=== PATIENT | female | born 1945 | race Caucasian/White ===

== ENCOUNTER 2019-04-17 20:59 | Emergency (ER) | payer MEDICAID ==
[~2019-04-17] VITALS: Ht 157.5 cm; Wt 72.0 kg
[~2019-04-17 20:59] MED LIST: ALPR-393 PO; LACT10SO7 PO; LISI-186 PO; METF-815 PO; ONDA4TAB11 PO; RANI-655 PO; TRAM50TA3 PO
[2019-04-18 01:26] LABS: CHLORIDE 105 mEq/L (98-107)
[2019-04-18 01:33] LABS: BASOPHILS % 0.6 % (0.0-2.0); EOSINOPHILS % 0.9 % (0.0-5.0); HEMATOCRIT. 38.3 % (36.0-48.0); HEMOGLOBIN. 13.2 g/dL (12.0-16.0); LYMPHOCYTES % 20.7 % (20.0-50.0); MEAN CORPUSCULAR HEMOGLOBIN 31.2 pg (28.0-32.0); MEAN CORPUSCULAR VOLUME 90.5 fL (81.0-99.0); MEAN PLATELET VOLUME 7.9 fl (7.4-10.4); MONOCYTES % 5.3 % (2.0-8.0); NEUTROPHILS % 72.5 % (40.0-76.0); PLATELET 283 x1000/uL (130-400); RED BLOOD CELL COUNT 4.23 mill/uL (4.2-5.4); RED CELL DISTRIBUTION WIDTH 13.2 % (11.6-14.6)
[2019-04-18] MEDS ORDERED: TRAMADOL 50MG TABLET PO ONE (02:30)
[2019-04-18] MEDS ORDERED: GABAPENTIN 300MG CAPSULE PO ONE (02:30)
[2019-04-18 03:06] VITALS: BP 129/51
== END 2019-04-18 04:12 | disposition home or self-care (01) ==
LOC: ER 20:59
DX: E11.42 Type 2 diabetes mellitus with diabetic polyneuropathy (principal); K31.9 Disease of stomach and duodenum, unspecified; E11.43 Type 2 diabetes mellitus with diabetic autonomic (poly)neuropathy; I10 Essential (primary) hypertension; K31.84 Gastroparesis; Z79.899 Other long term (current) drug therapy
CPT/HCPCS: 36415; 71045; 80053; 84484; 85025; 93005; 99285

== ENCOUNTER 2019-12-09 05:30 | Inpatient (IN) | payer MEDICAID, OTHER ==
[~2019-12-09] VITALS: Ht 152.4 cm; Wt 80.3 kg
[2019-12-09 06:38] LABS: BASOPHILS % 0.5 % (0.0-2.0); EOSINOPHILS % 0.6 % (0.0-5.0); HEMATOCRIT. 34.1 % (36.0-48.0); HEMOGLOBIN. 11.9 g/dL (12.0-16.0); LYMPHOCYTES % 18.5 % (20.0-50.0); MEAN CORPUSCULAR HEMOGLOBIN 31.7 pg (28.0-32.0); MEAN CORPUSCULAR VOLUME 91.2 fL (81.0-99.0); MONOCYTES % 6.8 % (2.0-8.0); NEUTROPHILS % 73.6 % (40.0-76.0); PLATELET 272 x1000/uL (130-400); RED BLOOD CELL COUNT 3.74 mill/uL (4.2-5.4); RED CELL DISTRIBUTION WIDTH 13.5 % (11.6-14.6)
[2019-12-09 06:45] LABS: CHLORIDE 98 mEq/L (98-107)
[2019-12-09] MEDS ORDERED: ASPIRIN 325MG EC TABLET PO ONE (08:00)
[2019-12-09] MEDS ORDERED: SODIUM CHLORIDE 0.9% 1,000 ML IV ONE (08:45)
[2019-12-09] MEDS ORDERED: CLONIDINE 0.1MG TABLET PO PRN (09:15)
[2019-12-09] MEDS ORDERED: ACETAMINOPHEN 325MG TABLET PO PRN ×2 (09:15)
[2019-12-09] MEDS ORDERED: DOCUSATE SODIUM 100MG CAPSULE PO PRN (09:15)
[2019-12-09] MEDS ORDERED: KETOROLAC 15MG/ML VIAL IV PRN (09:15)
[2019-12-09] MEDS ORDERED: MAGNESIUM/ALUMINUM HYDROXIDE/SIMETHICONE 30ML UDC PO PRN (09:15)
[2019-12-09] MEDS ORDERED: ONDANSETRON HCL 4MG/2ML INJ IV PRN (09:15)
[2019-12-09] MEDS ORDERED: NITROGLYCERIN 0.4MG TABLET SL SL PRN (09:15)
[2019-12-09] MEDS ORDERED: GUAIFENESIN 200MG/10ML SUGAR FREE UDC PO PRN (09:15)
[2019-12-09] MEDS ORDERED: DEXTROSE 50% WATER 50ML SYRINGE IV PRN (09:30)
[2019-12-09 09:33] LABS: ETHANOL BLOOD < 10 mg/dL
[2019-12-09 09:35] LABS: TOTAL IRON BINDING CAPACITY 315 ug/dL (250-450)
[2019-12-09 09:38] LABS: T4 FREE 1.04 ng/dL (0.76-1.46)
[2019-12-09] MEDS: AMLODIPINE 10MG TABLET PO SCH (09:42)
[2019-12-09 09:54] LABS: FOLIC ACID (FOLATE) SERUM 15.9 ng/mL (>5.38)
[2019-12-09] MEDS: ENOXAPARIN 40MG/0.4ML SYR SUBCUT SCH (09:55)
[2019-12-09 10:32] VITALS: BP 158/70
[2019-12-09 10:51] VITALS: BP 166/82
[2019-12-09] MEDS: ZINC SULFATE 220 MG ( 50 ) CAPSULE PO SCH (11:26)
[2019-12-09] MEDS: ASCORBIC ACID 500 MG TABLET PO SCH ×2 (11:26→21:02)
[2019-12-09] MEDS: LISINOPRIL 20MG TABLET PO SCH ×2 (11:27→21:02)
[2019-12-09] MEDS: PANTOPRAZOLE SODIUM 40 MG/VIAL IV SCH (11:30)
[2019-12-09] MEDS: BLOOD SUGAR DIAGNOSTIC STRIP TEST SCH ×3 (12:14→21:03)
[2019-12-09] MEDS: INSULIN LISPRO 100 UNITS/ML SUBCUT SCH ×3 (12:23→21:00)
[2019-12-09 12:30] VITALS: BP 158/82
[2019-12-09 16:26] VITALS: BP 128/72
[2019-12-09 16:37] LABS: CREATINE KINASE 119 IU/L (26-192)
[2019-12-09 16:38] LABS: CREATINE KINASE MB FRACTION 1.3 ng/mL (0.5-3.6)
[2019-12-09 20:34] VITALS: BP 121/63
[2019-12-09] MEDS: ZOLPIDEM TARTRATE 5MG TABLET PO PRN (23:17)
[2019-12-09 23:57] LABS: CREATINE KINASE 96 IU/L (26-192)
[2019-12-09 23:58] LABS: CREATINE KINASE MB FRACTION 1.3 ng/mL (0.5-3.6)
[2019-12-10 00:32] VITALS: BP 143/70
[2019-12-10 04:00] VITALS: BP 148/73
[2019-12-10] MEDS: INSULIN LISPRO 100 UNITS/ML SUBCUT SCH ×4 (06:51→21:00)
[2019-12-10] MEDS: BLOOD SUGAR DIAGNOSTIC STRIP TEST SCH ×4 (06:51→21:10)
[2019-12-10 07:04] LABS: BASOPHILS % 0.5 % (0.0-2.0); HEMATOCRIT. 33.6 % (36.0-48.0); HEMOGLOBIN. 11.6 g/dL (12.0-16.0); LYMPHOCYTES % 22.4 % (20.0-50.0); MEAN CORPUSCULAR HEMOGLOBIN 31.5 pg (28.0-32.0); MEAN CORPUSCULAR VOLUME 91.3 fL (81.0-99.0); MEAN PLATELET VOLUME 7.2 fl (7.4-10.4); MONOCYTES % 6.2 % (2.0-8.0); NEUTROPHILS % 69.9 % (40.0-76.0); PLATELET 272 x1000/uL (130-400); RED BLOOD CELL COUNT 3.68 mill/uL (4.2-5.4); RED CELL DISTRIBUTION WIDTH 12.9 % (11.6-14.6)
[2019-12-10 07:37] LABS: CHLORIDE 96 mEq/L (98-107)
[2019-12-10 07:44] LABS: PHOSPHORUS 3.6 mg/dL (2.5-4.9)
[2019-12-10 07:45] LABS: HDL CHOLESTEROL 46 mg/dL (40-59); LDL CHOLESTEROL 65 mg/dL (5-100)
[2019-12-10 08:00] VITALS: BP 127/63
[2019-12-10] MEDS: PANTOPRAZOLE SODIUM 40 MG/VIAL IV SCH (08:58)
[2019-12-10] MEDS: ENOXAPARIN 40MG/0.4ML SYR SUBCUT SCH (09:08)
[2019-12-10] MEDS: LISINOPRIL 20MG TABLET PO SCH ×2 (09:08→20:44)
[2019-12-10] MEDS: ASPIRIN 81MG EC TABLET PO SCH (09:08)
[2019-12-10] MEDS: ASCORBIC ACID 500 MG TABLET PO SCH ×2 (09:08→20:44)
[2019-12-10] MEDS: ZINC SULFATE 220 MG ( 50 ) CAPSULE PO SCH (09:08)
[2019-12-10] MEDS: AMLODIPINE 10MG TABLET PO SCH (09:08)
[2019-12-10 12:00] VITALS: BP 130/70
[2019-12-10 16:00] VITALS: BP 125/63
[2019-12-10 20:00] VITALS: BP 139/70
[2019-12-10] MEDS: ZOLPIDEM TARTRATE 5MG TABLET PO PRN (20:44)
[2019-12-11] VITALS: BP 124/66
[2019-12-11 04:00] VITALS: BP 113/61
[2019-12-11] MEDS: BLOOD SUGAR DIAGNOSTIC STRIP TEST SCH (06:20)
[2019-12-11] MEDS: INSULIN LISPRO 100 UNITS/ML SUBCUT SCH (06:51)
[2019-12-11 08:06] VITALS: BP 128/57
[2019-12-11] MEDS ORDERED: FAMOTIDINE 20MG/2ML VIAL IV SCH (09:00)
[2019-12-11 09:54] VITALS: BP 128/57
[2019-12-11] MEDS: AMLODIPINE 10MG TABLET PO SCH (10:01)
[2019-12-11] MEDS: LISINOPRIL 20MG TABLET PO SCH (10:01)
[2019-12-11] MEDS: ASPIRIN 81MG EC TABLET PO SCH (10:01)
[2019-12-11] MEDS: ZINC SULFATE 220 MG ( 50 ) CAPSULE PO SCH (10:01)
[2019-12-11] MEDS: ASCORBIC ACID 500 MG TABLET PO SCH (10:02)
[2019-12-11] MEDS: ENOXAPARIN 40MG/0.4ML SYR SUBCUT SCH (10:02)
== END 2019-12-11 11:40 | disposition home or self-care (01) | DRG 47 ==
LOC: ER 05:30 → ENRESERV 09:54 → 6WST 10:12
PROVIDERS: ADMIT Internal Medicine; ATTEND Internal Medicine
DX: G45.9 Transient cerebral ischemic attack, unspecified (principal); I16.1 Hypertensive emergency; F32.9 Major depressive disorder, single episode, unspecified; I10 Essential (primary) hypertension; E11.9 Type 2 diabetes mellitus without complications; Z86.73 Personal history of transient ischemic attack (TIA), and cerebral infarction without residual deficits; Z88.8 Allergy status to other drugs, medicaments and biological substances; Z79.84 Long term (current) use of oral hypoglycemic drugs; Z79.899 Other long term (current) drug therapy; E87.1 Hypo-osmolality and hyponatremia
CPT/HCPCS: 36415; 71045; 80053; 80061; 80320; 82550; 82553; 82607; 82746; 82962; 83036; 83540; 83550; 83735; 83880; 84100; 84439; 84443; 84484; 85025; 93005; 93970; 99291; C9113; J1650; J1815; J1885; J3490; J7030; G0480

== ENCOUNTER 2019-12-12 20:29 | Emergency (ER) | payer MEDICAID ==
[~2019-12-12] VITALS: Ht 160 cm; Wt 75.0 kg
[2019-12-12] MEDS ORDERED: ASPIRIN 81MG TABLET PO ONE (22:15)
[2019-12-12 23:47] LABS: BASOPHILS % 0.5 % (0.0-2.0); EOSINOPHILS % 0.5 % (0.0-5.0); HEMATOCRIT. 35.4 % (36.0-48.0); HEMOGLOBIN. 12.4 g/dL (12.0-16.0); LYMPHOCYTES % 19.1 % (20.0-50.0); MEAN CORPUSCULAR VOLUME 91.2 fL (81.0-99.0); MEAN PLATELET VOLUME 7.6 fl (7.4-10.4); MONOCYTES % 6.2 % (2.0-8.0); NEUTROPHILS % 73.7 % (40.0-76.0); PLATELET 291 x1000/uL (130-400); RED BLOOD CELL COUNT 3.88 mill/uL (4.2-5.4); RED CELL DISTRIBUTION WIDTH 13.6 % (11.6-14.6)
[2019-12-12 23:51] LABS: CHLORIDE 97 mEq/L (98-107)
[2019-12-13] LABS: T4 FREE 1.09 ng/dL (0.76-1.46)
[2019-12-13 04:08] VITALS: BP 148/79
== END 2019-12-13 04:13 | disposition home or self-care (01) ==
LOC: ER 20:29
DX: I10 Essential (primary) hypertension (principal); Z86.73 Personal history of transient ischemic attack (TIA), and cerebral infarction without residual deficits
CPT/HCPCS: 36415; 70450; 71045; 80053; 83880; 84439; 84443; 84484; 85025; 93005; 99285; Z7610

== ENCOUNTER 2020-02-21 14:14 | Emergency (ER) | payer MEDICAID ==
[~2020-02-21] VITALS: Ht 167.6 cm; Wt 78.0 kg
[2020-02-21 16:51] LABS: BASOPHILS % 0.6 % (0.0-2.0); EOSINOPHILS % 0.1 % (0.0-5.0); HEMATOCRIT. 37.6 % (36.0-48.0); HEMOGLOBIN. 12.9 g/dL (12.0-16.0); MEAN CORPUSCULAR HEMOGLOBIN 31.3 pg (28.0-32.0); MEAN CORPUSCULAR VOLUME 91.4 fL (81.0-99.0); MEAN PLATELET VOLUME 6.6 fl (7.4-10.4); MONOCYTES % 2.5 % (2.0-8.0); NEUTROPHILS % 85.8 % (40.0-76.0); PLATELET 306 x1000/uL (130-400); RED BLOOD CELL COUNT 4.12 mill/uL (4.2-5.4); RED CELL DISTRIBUTION WIDTH 13.6 % (11.6-14.6)
[2020-02-21 16:58] LABS: CHLORIDE 97 mEq/L (98-107)
[2020-02-21] MEDS: ACETAMINOPHEN 325MG TABLET PO STA (17:40)
[2020-02-21 17:49] VITALS: BP 141/81
== END 2020-02-21 17:50 | disposition home or self-care (01) ==
LOC: ER 14:14
DX: E87.1 Hypo-osmolality and hyponatremia (principal); R07.89 Other chest pain
CPT/HCPCS: 36415; 71045; 80053; 84484; 85025; 93005; 99285

== ENCOUNTER 2020-05-25 23:21 | Emergency (ER) | payer MEDICAID, OTHER ==
[~2020-05-25] VITALS: Ht 157.5 cm; Wt 78.0 kg
[2020-05-26 00:14] LABS: BASOPHILS % 0.7 % (0.0-2.0); EOSINOPHILS % 1.5 % (0.0-5.0); HEMATOCRIT. 36.4 % (36.0-48.0); HEMOGLOBIN. 12.2 g/dL (12.0-16.0); LYMPHOCYTES % 33.3 % (20.0-50.0); MEAN CORPUSCULAR HEMOGLOBIN 30.8 pg (28.0-32.0); MEAN CORPUSCULAR VOLUME 91.7 fL (81.0-99.0); NEUTROPHILS % 57.5 % (40.0-76.0); PLATELET 311 x1000/uL (130-400); RED BLOOD CELL COUNT 3.97 mill/uL (4.2-5.4); RED CELL DISTRIBUTION WIDTH 13.2 % (11.6-14.6)
[2020-05-26 00:18] LABS: CHLORIDE 98 mEq/L (98-107)
[2020-05-26] MEDS: PANTOPRAZOLE SODIUM 40 MG/VIAL IV ONE (00:26)
[2020-05-26] MEDS: MORPHINE SULFATE 2 MG/ML CPJ (NOT FOR IM USE) IV ONE (00:38)
[2020-05-26] MEDS: ONDANSETRON HCL 4MG/2ML INJ IV ONE (00:38)
[2020-05-26 01:06] LABS: CLARITY URINE CLEAR (CLEAR); COLOR URINE YELLOW (YELLOW); KETONES URINE NEGATIVE (NEGATIVE); LEUKOCYTE ESTERASE URINE TRACE (NEGATIVE); NITRITE URINE NEGATIVE (NEGATIVE); OCCULT BLOOD URINE TRACE (NEGATIVE); PH URINE 7.5 (4.5-8.0); PROTEIN URINE NEGATIVE (NEGATIVE); SPECIFIC GRAVITY URINE 1.005 (1.005-1.030); UROBILINOGEN URINE 0.2 E.U./dL (0.2-1.0)
[2020-05-26] MEDS ORDERED: LEVO750T46 MT (04:09)
[2020-05-26] MEDS ORDERED: HYDR12.54 PO (04:13)
[2020-05-26 04:24] VITALS: BP 133/74
[2020-05-26] MEDS ORDERED: IOHEXOL-300 100 ML BOTTLE ONE (05:37)
== END 2020-05-26 04:40 | disposition home or self-care (01) ==
LOC: ER 23:21
DX: R10.13 Epigastric pain (principal); I10 Essential (primary) hypertension; N39.0 Urinary tract infection, site not specified; K57.90 Diverticulosis of intestine, part unspecified, without perforation or abscess without bleeding; Z88.8 Allergy status to other drugs, medicaments and biological substances
CPT/HCPCS: 36415; 74177; 80048; 80076; 81003; 83690; 84484; 85025; 93005; 96374; 96375; 99285; C9113; J2270; J2405; Q9967

== ENCOUNTER 2020-06-26 08:56 | Emergency (ER) | payer OTHER ==
[~2020-06-26] VITALS: Ht 160 cm; Wt 78.0 kg
[~2020-06-26 08:56] MED LIST changes: -ALPR-393 PO; +AMLO5TAB4 MT; -LACT10SO7 PO; -LISI-186 PO; -METF-815 PO; +NITR-87 MT; -ONDA4TAB11 PO; +PARO10TA74 MT; -RANI-655 PO; -TRAM50TA3 PO; +vitamin d
[2020-06-26] MEDS ORDERED: AMLO5TAB88 MT (09:27)
[2020-06-26] MEDS ORDERED: PARO10TA74 MT (09:28)
[2020-06-26 09:49] VITALS: BP 145/62
== END 2020-06-26 09:50 | disposition home or self-care (01) ==
LOC: ER 08:56
DX: I10 Essential (primary) hypertension (principal); Z76.0 Encounter for issue of repeat prescription; Z87.440 Personal history of urinary (tract) infections; Z88.8 Allergy status to other drugs, medicaments and biological substances; Z79.899 Other long term (current) drug therapy
CPT/HCPCS: 99281; 99283

== ENCOUNTER 2020-07-12 12:20 | Emergency (ER) | payer MEDICAID, OTHER ==
[~2020-07-12] VITALS: Ht 162.6 cm; Wt 63.0 kg
[~2020-07-12 12:20] MED LIST changes: +AMLO5TAB88 MT
[2020-07-12 12:22] VITALS: BP 173/78
[2020-07-12 13:19] LABS: CHLORIDE 100 mEq/L (98-107)
[2020-07-12 13:35] LABS: BASOPHILS % 0.4 % (0.0-2.0); EOSINOPHILS % 0.5 % (0.0-5.0); HEMATOCRIT. 33.2 % (36.0-48.0); HEMOGLOBIN. 12.1 g/dL (12.0-16.0); LYMPHOCYTES % 15.1 % (20.0-50.0); MEAN CORPUSCULAR HEMOGLOBIN 33.3 pg (28.0-32.0); MEAN CORPUSCULAR VOLUME 91.3 fL (81.0-99.0); MEAN PLATELET VOLUME 6.6 fl (7.4-10.4); MONOCYTES % 4.2 % (2.0-8.0); NEUTROPHILS % 79.8 % (40.0-76.0); PLATELET 286 x1000/uL (130-400); RED BLOOD CELL COUNT 3.64 mill/uL (4.2-5.4); RED CELL DISTRIBUTION WIDTH 13.5 % (11.6-14.6)
== END 2020-07-12 12:51 | disposition home or self-care (01) ==
LOC: ER 12:20
DX: F41.9 Anxiety disorder, unspecified (principal); Z88.8 Allergy status to other drugs, medicaments and biological substances
CPT/HCPCS: 36415; 71045; 80053; 85025; 93005; 99285; Z7610

== ENCOUNTER 2020-11-28 21:54 | Emergency (ER) | payer MEDICAID ==
[~2020-11-28] VITALS: Ht 167.6 cm; Wt 78.0 kg
[2020-11-28 22:42] LABS: BASOPHILS % 0.4 % (0.0-2.0); EOSINOPHILS % 0.5 % (0.0-5.0); HEMATOCRIT. 33.8 % (36.0-48.0); HEMOGLOBIN. 11.6 g/dL (12.0-16.0); LYMPHOCYTES % 17.5 % (20.0-50.0); MEAN CORPUSCULAR HEMOGLOBIN 30.9 pg (28.0-32.0); MEAN CORPUSCULAR VOLUME 89.9 fL (81.0-99.0); MEAN PLATELET VOLUME 6.8 fl (7.4-10.4); MONOCYTES % 5.9 % (2.0-8.0); NEUTROPHILS % 75.7 % (40.0-76.0); PLATELET 296 x1000/uL (130-400); RED BLOOD CELL COUNT 3.76 mill/uL (4.2-5.4); RED CELL DISTRIBUTION WIDTH 13.3 % (11.6-14.6)
[2020-11-28 22:51] LABS: CHLORIDE 99 mEq/L (98-107)
[2020-11-28 22:52] LABS: CLARITY URINE CLEAR (CLEAR); COLOR URINE YELLOW (YELLOW); KETONES URINE NEGATIVE (NEGATIVE); LEUKOCYTE ESTERASE URINE NEGATIVE (NEGATIVE); NITRITE URINE NEGATIVE (NEGATIVE); OCCULT BLOOD URINE 1+ (NEGATIVE); PH URINE 7.5 (4.5-8.0); PROTEIN URINE NEGATIVE (NEGATIVE); PROTHROMBIN TIME 10.3 sec (9.6-11.0); SPECIFIC GRAVITY URINE 1.005 (1.005-1.030); UROBILINOGEN URINE 0.2 E.U./dL (0.2-1.0)
[2020-11-28 22:56] LABS: ETHANOL BLOOD < 10 mg/dL
[2020-11-28 22:57] LABS: C REACTIVE PROTEIN QUANT 1.1 mg/L (0.0-3.0)
[2020-11-28 22:59] LABS: CREATINE KINASE 140 IU/L (26-192)
[2020-11-28 23:03] LABS: *BARBITURATES SCREEN URINE NEGATIVE (NEGATIVE)
[2020-11-28 23:04] LABS: *BENZODIAZEPINES SCREEN URINE NEGATIVE (NEGATIVE); *COCAINE SCREEN URINE NEGATIVE (NEGATIVE); CANNABINOID URINE SCREEN NEGATIVE (NEGATIVE); METHADONE URINE SCREEN NEGATIVE (NEGATIVE); OPIATES URINE SCREEN NEGATIVE (NEGATIVE); PHENCYCLIDINE URINE SCREEN NEGATIVE (NEGATIVE)
[2020-11-28 23:05] LABS: *AMPHETAMINES SCREEN URINE NEGATIVE (NEGATIVE)
[2020-11-29 04:41] VITALS: BP 132/64
== END 2020-11-29 06:03 | disposition short-term general hospital (02) ==
LOC: ER 21:54 → CANBEDREQ 11-29 05:02 → ER 11-29 06:03
DX: R07.89 Other chest pain (principal); R53.1 Weakness; Z20.822 Contact with and (suspected) exposure to COVID-19; R51.9 Headache, unspecified; R78.81 Bacteremia; I10 Essential (primary) hypertension; D64.9 Anemia, unspecified; H02.401 Unspecified ptosis of right eyelid
CPT/HCPCS: 36415; 71045; 80053; 80305; 80320; 81003; 82550; 82728; 83605; 84145; 84484; 85025; 86140; 86850; 86900; 87426; 93005; 99285; G0480

== ENCOUNTER 2021-02-04 16:15 | Emergency (ER) | payer MEDICAID, OTHER ==
[~2021-02-04] VITALS: Ht 165.1 cm; Wt 73.0 kg
[2021-02-04 17:26] LABS: BASOPHILS % 0.8 % (0.0-2.0); EOSINOPHILS % 0.5 % (0.0-5.0); HEMATOCRIT. 34.9 % (36.0-48.0); HEMOGLOBIN. 11.7 g/dL (12.0-16.0); LYMPHOCYTES % 15.9 % (20.0-50.0); MEAN CORPUSCULAR HEMOGLOBIN 30.4 pg (28.0-32.0); MEAN CORPUSCULAR VOLUME 90.2 fL (81.0-99.0); MEAN PLATELET VOLUME 7.1 fl (7.4-10.4); NEUTROPHILS % 77.8 % (40.0-76.0); PLATELET 297 x1000/uL (130-400); RED BLOOD CELL COUNT 3.87 mill/uL (4.2-5.4); RED CELL DISTRIBUTION WIDTH 13.3 % (11.6-14.6)
[2021-02-04 17:28] LABS: CLARITY URINE CLEAR (CLEAR); COLOR URINE YELLOW (YELLOW); KETONES URINE NEGATIVE (NEGATIVE); LEUKOCYTE ESTERASE URINE NEGATIVE (NEGATIVE); NITRITE URINE NEGATIVE (NEGATIVE); OCCULT BLOOD URINE 1+ (NEGATIVE); PH URINE 7.5 (4.5-8.0); PROTEIN URINE NEGATIVE (NEGATIVE); SPECIFIC GRAVITY URINE 1.005 (1.005-1.030); UROBILINOGEN URINE 0.2 E.U./dL (0.2-1.0)
[2021-02-04 17:33] LABS: CHLORIDE 97 mEq/L (98-107)
[2021-02-04 21:48] VITALS: BP 157/84
== END 2021-02-04 21:49 | disposition home or self-care (01) ==
LOC: ER 16:15
DX: R53.1 Weakness (principal); I10 Essential (primary) hypertension; Z87.440 Personal history of urinary (tract) infections; Z79.899 Other long term (current) drug therapy
CPT/HCPCS: 36415; 71045; 80053; 81003; 85025; 87077; 87186; 93005; 99285

== ENCOUNTER 2021-02-08 16:30 | Inpatient (IN) | payer OTHER ==
[~2021-02-08] VITALS: Ht 162.6 cm; Wt 77.1 kg
[2021-02-08] MEDS ORDERED: LORAZEPAM 2MG/ML CPJ IV ONE (17:15)
[2021-02-08] MEDS ORDERED: MECLIZINE 25MG TABLET PO ONE (17:15)
[2021-02-08] MEDS ORDERED: SODIUM CHLORIDE 0.9% 1,000 ML IV ONE (17:15)
[2021-02-08 17:48] LABS: BASOPHILS % 0.4 % (0.0-2.0); EOSINOPHILS % 0.4 % (0.0-5.0); HEMATOCRIT. 37.4 % (36.0-48.0); HEMOGLOBIN. 12.8 g/dL (12.0-16.0); LYMPHOCYTES % 16.6 % (20.0-50.0); MEAN CORPUSCULAR HEMOGLOBIN 30.5 pg (28.0-32.0); MEAN CORPUSCULAR VOLUME 89.1 fL (81.0-99.0); MEAN PLATELET VOLUME 6.7 fl (7.4-10.4); MONOCYTES % 4.8 % (2.0-8.0); NEUTROPHILS % 77.8 % (40.0-76.0); PLATELET 296 x1000/uL (130-400); RED BLOOD CELL COUNT 4.19 mill/uL (4.2-5.4); RED CELL DISTRIBUTION WIDTH 12.9 % (11.6-14.6)
[2021-02-08 17:53] LABS: CHLORIDE 94 mEq/L (98-107)
[2021-02-09] MEDS ORDERED: ASPIRIN 325MG EC TABLET PO ONE (02:00)
[2021-02-09 10:00] VITALS: BP 101/62
[2021-02-09] MEDS ORDERED: CHOL400D7 PO (10:16)
[2021-02-09] MEDS ORDERED: AMLO5TAB4 PO (10:16)
[2021-02-09] MEDS ORDERED: ACETAMINOPHEN 325MG TABLET PO PRN (10:30)
[2021-02-09] MEDS ORDERED: MECLIZINE 25MG TABLET PO PRN (10:30)
[2021-02-09] MEDS ORDERED: ONDANSETRON HCL 4MG/2ML INJ IV PRN (10:30)
[2021-02-09 12:00] VITALS: BP 101/55
[2021-02-09 15:58] VITALS: BP 100/50
[2021-02-09 19:10] LABS: CLARITY URINE CLEAR (CLEAR); COLOR URINE YELLOW (YELLOW); KETONES URINE NEGATIVE (NEGATIVE); LEUKOCYTE ESTERASE URINE NEGATIVE (NEGATIVE); NITRITE URINE NEGATIVE (NEGATIVE); OCCULT BLOOD URINE 1+ (NEGATIVE); PH URINE 7.5 (4.5-8.0); PROTEIN URINE NEGATIVE (NEGATIVE); SPECIFIC GRAVITY URINE 1.006 (1.005-1.030)
[2021-02-09 20:00] VITALS: BP 153/72
[2021-02-09 21:59] VITALS: BP 130/72
== END 2021-02-09 22:27 | disposition home or self-care (01) | DRG 48 ==
LOC: ER 16:30 → 8WST 02-09 01:47 → ENRESERV 02-09 07:18
PROVIDERS: ADMIT Internal Medicine; ATTEND Internal Medicine
DX: G90.8 Other disorders of autonomic nervous system (principal); E87.1 Hypo-osmolality and hyponatremia; E87.8 Other disorders of electrolyte and fluid balance, not elsewhere classified; I10 Essential (primary) hypertension; Z88.0 Allergy status to penicillin; Z88.8 Allergy status to other drugs, medicaments and biological substances; Z79.899 Other long term (current) drug therapy; Z87.440 Personal history of urinary (tract) infections
CPT/HCPCS: 36415; 70544; 70553; 80053; 81003; 84484; 85025; 93005; 99285; J2060; J7030; J8597

== ENCOUNTER 2021-02-13 13:18 | Emergency (ER) | payer OTHER ==
[~2021-02-13] VITALS: Ht 162.6 cm; Wt 73.0 kg
[~2021-02-13 13:18] MED LIST changes: +CHOL400D7 PO; -vitamin d
[2021-02-13 14:35] LABS: BASOPHILS % 0.6 % (0.0-2.0); EOSINOPHILS % 0.2 % (0.0-5.0); HEMATOCRIT. 37.1 % (36.0-48.0); HEMOGLOBIN. 12.8 g/dL (12.0-16.0); LYMPHOCYTES % 20.3 % (20.0-50.0); MEAN CORPUSCULAR HEMOGLOBIN 30.6 pg (28.0-32.0); MEAN CORPUSCULAR VOLUME 89.1 fL (81.0-99.0); MEAN PLATELET VOLUME 6.7 fl (7.4-10.4); MONOCYTES % 3.5 % (2.0-8.0); NEUTROPHILS % 75.4 % (40.0-76.0); PLATELET 325 x1000/uL (130-400); RED BLOOD CELL COUNT 4.17 mill/uL (4.2-5.4); RED CELL DISTRIBUTION WIDTH 12.9 % (11.6-14.6)
[2021-02-13 14:37] LABS: CHLORIDE 103 mEq/L (98-107)
[2021-02-13 14:56] LABS: CLARITY URINE CLEAR (CLEAR); COLOR URINE YELLOW (YELLOW); KETONES URINE NEGATIVE (NEGATIVE); LEUKOCYTE ESTERASE URINE TRACE (NEGATIVE); NITRITE URINE NEGATIVE (NEGATIVE); OCCULT BLOOD URINE 1+ (NEGATIVE); PROTEIN URINE NEGATIVE (NEGATIVE); SPECIFIC GRAVITY URINE 1.014 (1.005-1.030); UROBILINOGEN URINE 0.2 E.U./dL (0.2-1.0)
[2021-02-13] MEDS ORDERED: MECLIZINE 25MG TABLET PO ONE (15:45)
[2021-02-13] MEDS ORDERED: MECL-159 MT (15:50)
[2021-02-13 16:27] VITALS: BP 147/85
== END 2021-02-13 16:29 | disposition home or self-care (01) ==
LOC: ER 13:18
DX: R42 Dizziness and giddiness (principal); I10 Essential (primary) hypertension; Z88.0 Allergy status to penicillin; Z88.8 Allergy status to other drugs, medicaments and biological substances; Z79.899 Other long term (current) drug therapy
CPT/HCPCS: 36415; 71045; 80053; 81003; 84484; 85025; 93005; 99285; J8597